=== PATIENT | male | born 1960 | race Two or more races ===

== ENCOUNTER 2021-12-12 08:12 | Inpatient (IN) | payer OTHER ==
[~2021-12-12] VITALS: Ht 162.6 cm; Wt 72.1 kg
[2021-12-12] MEDS ORDERED: PREDNISOLO15 MG/5 ML (08:39)
--- NOTE | 2021-12-12 09:23 | NUR ---
PACIENTE EVALUADA POR EL QUIEN ORDENA TRATAMIENTO MEDICO.SE ORIENTA PACIENTE SOBRE EL MISMO LEANDRO REFIERE ENTENDER. SE REALIZAN MUESTRAS BAJO MEDIDAS ASEPTICAS Y ADMINISTRAN MEDICAMENTOS ROHAN ORDEN. SE HACE ENTREGA DE ENVASE U/A.
== END 2021-12-20 16:30 | disposition home or self-care (01) | DRG 603 ==
LOC: ER 08:12 → SURG 20:23 → SURH 20:23 → SEC-K 20:23 → SURG 21:53 → SURH 12-15 12:19
PROVIDERS: ADMIT Internal Medicine; ATTEND Internal Medicine
PROC: B54DZZZ Ultrasonography of Bilateral Lower Extremity Veins (ICD-10-PCS; principal; 2021-12-12)
DX: L03.115 Cellulitis of right lower limb (principal); L03.116 Cellulitis of left lower limb; L95.8 Other vasculitis limited to the skin; L30.8 Other specified dermatitis; I10 Essential (primary) hypertension